=== PATIENT | male | born 1955 | race Caucasian/White ===

== ENCOUNTER 2017-09-19 10:11 | Day surgery (SDC) | payer BC ==
[2017-09-19] MEDS ORDERED: SIMETHICONE 40 MG/0.6 ML ML ONE (10:27)
[2017-09-19] MEDS: MIDAZOLAM HCL 5 MG/5 ML VIAL ONE ×4 (10:35→10:41)
[2017-09-19] MEDS: MEPERIDINE HCL/PF 100 MG/ML AMP ONE ×3 (10:35→10:57)
[2017-09-19 14:24] VITALS: BP_SYST 105
== END 2017-09-19 12:32 | disposition home or self-care (01) ==
LOC: SDS 10:11
PROVIDERS: ATTEND Internal Medicine Gastroenterology
DX: K63.5 Polyp of colon (principal); K57.30 Diverticulosis of large intestine without perforation or abscess without bleeding; K64.8 Other hemorrhoids; D3A.092 Benign carcinoid tumor of the stomach; K21.9 Gastro-esophageal reflux disease without esophagitis; K29.70 Gastritis, unspecified, without bleeding; Z68.32 Body mass index [BMI] 32.0-32.9, adult; I10 Essential (primary) hypertension; Z79.899 Other long term (current) drug therapy; E03.9 Hypothyroidism, unspecified
CPT/HCPCS: 36415; 43239; 45380; 87081; 88305; 88312; 88313; 88341; 88342; 88361; J2175; J2250

== ENCOUNTER 2018-03-27 06:41 | Day surgery (SDC) | payer BC ==
[2018-03-27] MEDS ORDERED: SIMETHICONE 40 MG/0.6 ML ML ONE (06:49)
[2018-03-27] MEDS: MEPERIDINE HCL/PF 100 MG/ML AMP ONE ×3 (07:40→07:52)
[2018-03-27] MEDS: MIDAZOLAM HCL 5 MG/5 ML VIAL ONE ×4 (07:40→07:46)
[2018-03-27 13:19] VITALS: BP_SYST 148
== END 2018-03-27 09:50 | disposition home or self-care (01) ==
LOC: SDS 06:41 → SMU 06:41 → SDS 09:50
PROVIDERS: ATTEND Internal Medicine Gastroenterology
DX: K29.50 Unspecified chronic gastritis without bleeding (principal); K21.9 Gastro-esophageal reflux disease without esophagitis; Z68.33 Body mass index [BMI] 33.0-33.9, adult; I10 Essential (primary) hypertension; Z79.899 Other long term (current) drug therapy; Z98.890 Other specified postprocedural states
CPT/HCPCS: 43236; 43251; 88305; 88312; 88313; J2175; J2250